=== PATIENT | male | born 2000 | race Caucasian/White ===

== ENCOUNTER 2019-11-29 08:50 | Emergency (ER) | payer BC, OTHER ==
[2019-11-29] MEDS ORDERED: HYDROCODONE/APAP 10/325 TAB ONE (09:10)
--- NOTE | 2019-11-29 09:49 | EDPHYS ---
Physician Documentation [facility] Name: Chang Mendez Age: 19 yrs Sex: Male : 2000 Arrival Date: 11/29/2019 Time: 08:54 Bed 5 Private MD: Dominik Rosa ED Physician Zain Persaud HPI: 11/28 09:04 This 19 yrs old Male presents to ER via Ambulatory with complaints of Hand snw Injury. 09:04 The patient or guardian reports decreased range of motion, pain, swelling. snw Historical: - Allergies: 09:00 PENICILLINS; aa5 - PMHx: 09:00 None; aa5 - PSHx: 09:09 right hand sx; em - Immunization history:: Adult Immunizations up to date. ROS: 09:03 Constitutional: Negative for fever, chills, and weight loss, Eyes: Negative for injury, snw pain, redness, and discharge, ENT: Negative for injury, pain, and discharge, Neck: Negative for injury, pain, and swelling, Cardiovascular: Negative for chest pain, palpitations, and edema, Respiratory: Negative for shortness of breath, cough, wheezing, and pleuritic chest pain, Abdomen/GI: Negative for abdominal pain, nausea, vomiting, diarrhea, and constipation, Back: Negative for injury and pain, : Negative for injury, bleeding, discharge, and swelling, Skin: Negative for injury, rash, and discoloration, Neuro: Negative for headache, weakness, numbness, tingling, and seizure, Psych: Negative for depression, anxiety, suicide ideation, homicidal ideation, and hallucinations. 09:03 MS/extremity: Positive for injury or acute deformity, decreased range of motion, pain, swelling, of the right hand. Exam: 09:02 Constitutional: This is a well developed, well nourished patient who is awake, alert, snw and in no acute distress. Head/Face: Normocephalic, atraumatic. Eyes: Pupils equal round and reactive to light, extra-ocular motions intact. Lids and lashes normal. Conjunctiva and sclera are non-icteric and not injected. Cornea within normal limits. Periorbital areas with no swelling, redness, or edema. Chest/axilla: Normal chest wall appearance and motion. Nontender with no deformity. No lesions are appreciated. Respiratory: Lungs have equal breath sounds bilaterally, clear to auscultation and percussion. No rales, rhonchi or wheezes noted. No increased work of breathing, no retractions or nasal flaring. Back: No spinal tenderness. No costovertebral tenderness. Full range of motion. Skin: Warm, dry with normal turgor. Normal color with no rashes, no lesions, and no evidence of cellulitis. Neuro: Awake and alert, GCS 15, oriented to person, place, time, and situation. Cranial nerves II-XII grossly intact. Motor strength 5/5 in all extremities. Sensory grossly intact. Cerebellar exam normal. Normal gait. Psych: Awake, alert, with orientation to person, place and time. Behavior, mood, and affect are within normal limits. 09:02 Musculoskeletal/extremity: Extremities: grossly normal except: noted in the dorsal aspect of middle phalanx of right index finger, dorsal aspect of proximal phalanx of right index finger, dorsal aspect of middle phalanx of right middle finger and dorsal aspect of proximal phalanx of right middle finger: decreased ROM, swelling, tenderness, ROM: limited active range of motion, limited passive range of motion due to pain, Circulation is intact in all extremities. the right hand Sensation intact. Vital Signs: 08:56 BP 126 / 87; Pulse 65; Resp 18 S; Temp 98.9(TE); Pulse Ox 100% on R/A; aa5 MDM: 08:58 Patient medically screened. snw 09:49 Data reviewed: vital signs, nurses notes. Data interpreted: Pulse oximetry: on room air snw is 100 %. Interpretation: normal. Counseling: I had a detailed discussion with the patient and/or guardian regarding: the historical points, exam findings, and any diagnostic results supporting the discharge/admit diagnosis, radiology results, the need for outpatient follow up, to return to the emergency department if symptoms worsen or persist or if there are any questions or concerns that arise at home. Special discussion: Based on the history and exam findings, there is no indication for further emergent testing or inpatient evaluation. I discussed with the patient/guardian the need to see the hand specialist for further evaluation of the symptoms. I discussed with the patient/guardian the need to see the orthopedic surgeon for further evaluation of the symptoms. 11/28 09:00 Order name: Hand Right 3 View XRAY; Complete Time: 10:05 snw 11/28 09:36 Order name: Volar Wrist Splint; Complete Time: 09:38 snw Administered Medications: 09:08 Drug: Celina 10 mg-325 mg 1 tabs Route: PO; em 10:02 Follow up: Response: No adverse reaction; Marked relief of symptoms; Pain is decreased; em RASS: Alert and Calm (0) Disposition: 16:51 Co-signature as Attending Physician, Zain Persaud MD I agree with the assessment and kdr plan of care. Disposition: 11/29/19 09:48 Discharged to Home. Impression: Nondisplaced fracture of base of third metacarpal bone, right hand. - Condition is Stable. - Discharge Instructions: Cast or Splint Care, Adult, RICE for Routine Care of Injuries, Hand Pain. - Prescriptions for Mobic 7.5 mg Oral Tablet - take 1 tablet by ORAL route once daily take with food; 20 tablet. - Work release form, Medication Reconciliation Form, Thank You Letter, Antibiotic Education, Prescription Opioid Use form. - Follow up: Emergency Department; When: As needed; Reason: Worsening of condition. Follow up: Rodney Leonard MD; When: 2 - 3 days; Reason: Recheck today's complaints, Continuance of care. Signatures: Dispatcher [employer] EDMS Zain Persaud MD MD [facility] Dodie Guzman, FIELD IRRIGATION WORKER-C FIELD IRRIGATION WORKER-Csnw Sourav De La Torre RN RN Tamiko Benz RN RN aa5 Corrections: (The following items were deleted from the chart) 09:09 09:00 PSHx: None; aa5 em 10:05 09:48 11/29/2019 09:48 Discharged to Home. Impression: Nondisplaced fracture of base of em third metacarpal bone, right hand. Condition is Stable. Forms are Medication Reconciliation Form, Thank You Letter, Antibiotic Education, Prescription Opioid Use. Follow up: Emergency Department; When: As needed; Reason: Worsening of condition. Follow up: Dr. Rodney Leonard; When: 2 - 3 days; Reason: Recheck today's complaints, Continuance of care. snw
--- NOTE | 2019-11-29 09:49 | ER ---
Nurse's Notes [facility] Name: Chang Mendez Age: 19 yrs Sex: Male : 2000 Arrival Date: 11/29/2019 Time: 08:54 Bed 5 Private MD: Dominik Rosa Diagnosis: Nondisplaced fracture of base of third metacarpal bone, right hand Presentation: 11/28 08:56 Chief complaint: Patient states: "I got my hand wrapped up with a drill press on aa5 Monday at work". pt c/o right hand pain, swelling noted to right index finger, and right middle finger. 08:56 Onset of symptoms was November 2019. aa5 08:56 Acuity: STELLA 4 aa5 08:56 Coronavirus screen: Proceed with normal triage. Ebola Screen: Patient negative for aa5 fever greater than or equal to 101.5 degrees Fahrenheit, and additional compatible Ebola Virus Disease symptoms. Initial Sepsis Screen: Does the patient meet any 2 criteria? No. Patient's initial sepsis screen is negative. Does the patient have a suspected source of infection? No. Patient's initial sepsis screen is negative. Risk Assessment: Do you want to hurt yourself or someone else? Patient reports no desire to harm self or others. 08:56 Method Of Arrival: Ambulatory aa5 Historical: - Allergies: 09:00 PENICILLINS; aa5 - PMHx: 09:00 None; aa5 - PSHx: 09:09 right hand sx; em - Immunization history:: Adult Immunizations up to date. Screenin:09 Abuse screen: Denies threats or abuse. Nutritional screening: No deficits noted. em Tuberculosis screening: No symptoms or risk factors identified. Fall Risk None identified. Assessment: 09:05 General: Appears in no apparent distress. comfortable, Behavior is calm, cooperative, em appropriate for age, Denies fever. Pain: Complains of pain in dorsal aspect of distal phalanx of right index finger, dorsal aspect of middle phalanx of right index finger, dorsal aspect of proximal phalanx of right index finger, dorsal aspect of distal phalanx of right middle finger, dorsal aspect of middle phalanx of right middle finger, dorsal aspect of proximal phalanx of right middle finger, dorsal aspect of distal phalanx of right ring finger, dorsal aspect of middle phalanx of right ring finger and dorsal aspect of proximal phalanx of right ring finger Pain currently is 3 out of 10 on a pain scale. Pain began 1 day ago. Aggravated by repositioning. Neuro: Level of Consciousness is awake, alert, obeys commands, Oriented to person, place, time, situation, Appropriate for age. Cardiovascular: Capillary refill < 3 seconds Patient's skin is warm and dry. Respiratory: Airway is patent Respiratory effort is even, unlabored, Respiratory pattern is regular, symmetrical. Derm: Skin is intact, is healthy with good turgor, Skin is pink, warm \\T\\ dry. Musculoskeletal: Capillary refill < 3 seconds, Range of motion: limited in PIP of right index finger, MCP of right index finger, PIP of right middle finger, MCP of right middle finger, PIP of right ring finger and MCP of right ring finger Swelling present in right hand. Vital Signs: 08:56 BP 126 / 87; Pulse 65; Resp 18 S; Temp 98.9(TE); Pulse Ox 100% on R/A; aa5 ED Course: 08:54 Patient arrived in ED. mr 08:54 Dominik Rosa MD is Private Physician. mr 08:56 Arm band placed on Patient placed in an exam room, on a stretcher. aa5 08:57 Sourav De La Torre RN is Primary Nurse. em 08:58 Dodie Guzman FNP-C is PHCP. snw 08:58 Zain Perasud MD is Attending Physician. snw 09:02 Triage completed. aa5 09:09 Patient has correct armband on for positive identification. Bed in low position. Call em light in reach. Pulse ox on. NIBP on. 09:33 Hand Right 3 View XRAY In Process Unspecified. EDMS 09:43 Rodney Leonard MD is Referral Physician. snw 10:02 No provider procedures requiring assistance completed. Patient did not have IV access em during this emergency room visit. Administered Medications: 09:08 Drug: Media 10 mg-325 mg 1 tabs Route: PO; em 10:02 Follow up: Response: No adverse reaction; Marked relief of symptoms; Pain is decreased; em RASS: Alert and Calm (0) Outcome: 09:48 Discharge ordered by . snw 10:02 Discharged to home ambulatory. em 10:02 Condition: good 10:02 Discharge instructions given to patient, Instructed on discharge instructions, follow up and referral plans. medication usage, Demonstrated understanding of instructions, follow-up care, medications, splint care, Prescriptions given X 1. 10:05 Patient left the ED. em Signatures: Dispatcher [employer] EDDodie Del Cid, ESCROW CLOSER-C ESCROW CLOSER-Csnw Anabella Krishnan Sourav De La Torre, RN RN em Tamiko Benz RN RN aa5 Corrections: (The following items were deleted from the chart) 09:09 09:00 PSHx: None; aa5 em
--- NOTE | 2019-11-29 10:04 | RAD REPORT ---
EXAM DESCRIPTION: RAD - Hand Right 3 View - 11/29/2019 9:32 am CLINICAL HISTORY: PAIN, hand trauma, pain primarily second and third fingers COMPARISON: Hand Right 3 View dated 12/18/2015 FINDINGS: Nondisplaced fractures present at the base of the third middle phalanx. Lateral view shows possible fracture or periosteal elevation at the dorsal margin of the third proximal phalanx head. S oft tissue edema surrounds the bony injuries at the third PIP joint. Soft tissue swelling is present around the second digit. No fracture is identifiable. Remainder the hand is without acute bony injury. Fixation hardware is present from prior fifth metaca rpal fracture repair. There is no dislocation or periosteal reaction noted. No foreign body in the s oft tissues. IMPRESSION: Nondisplaced fractures involving the head of the third proximal phalanx and base of the third middle phalanx at the PIP joint. Soft tissue swelling second and third digits with no additional acute bone or joint finding.
[2019-11-29 10:11] VITALS: BP 126/87; TEMP 98.9; O2SAT 100
== END 2019-11-29 10:05 | disposition home or self-care (01) ==
LOC: ER 08:50
PROC: 2W3CX1Z Immobilization of Right Lower Arm using Splint (ICD-10-PCS; principal; 2019-11-29)
DX: S62.342A Nondisplaced fracture of base of third metacarpal bone, right hand, initial encounter for closed fracture (principal); X58.XXXA Exposure to other specified factors, initial encounter; Y93.89 Activity, other specified; Y92.89 Other specified places as the place of occurrence of the external cause; Y99.8 Other external cause status; Z88.0 Allergy status to penicillin
CPT/HCPCS: 99284

== ENCOUNTER 2024-02-19 03:25 | Emergency (ER) | payer BC, OTHER ==
[2024-02-19] MEDS ORDERED: KETOROLAC 30 MG/ML INJ ONE (04:07)
[2024-02-19] MEDS ORDERED: ONDANSETRON 4 MG/2 ML VIAL ONE (04:07)
[2024-02-19] MEDS ORDERED: NA CHLORIDE 0.9% 1,000 ML ONE (04:08)
[2024-02-19] MEDS ORDERED: MORPHINE 4 MG/ML SYR ONE (04:08)
[2024-02-19 04:39] LABS: Absolute Basophils 0.1 K/uL (0-0.5); Absolute Eosinophils 0.1 K/uL (0-0.5); Absolute Lymphocytes (CBC) 1.6 K/uL (0.7-4.9); Absolute Monocytes 1.2 K/uL (0.1-1.3); Absolute Neutrophil 10.8 K/uL (1.8-8.0); Basophils % 0.4 % (0-1.3); Eosinophils % 0.7 % (0-4.4); Hematocrit 41.6 % (39.6-49.0); Hemoglobin 14.7 g/dL (13.6-17.9); Lymphocytes % 11.9 % (15.3-44.8); MCH 32.1 pg (27.0-35.0); MCHC 35.4 g/dL (32.0-36.0); MCV 90.8 fL (80-100); MPV 8.8 fL (7.6-11.3); Monocytes % 8.6 % (3.3-12.3); Neutrophils % 78.4 % (41.7-73.7); Platelets 259 thou/uL (152-406); RBC Red Blood Cell Count 4.58 M/uL (4.33-5.43)
[2024-02-19 04:49] LABS: ALT/SGPT 33 U/L (16-61); Albumin 3.6 g/dL (3.4-5.0); Alkaline Phosphatase 58 U/L (45-117); Anion Gap 6.8 mEq/L (5.0-15.0); BUN Blood Urea Nitrogen 12 mg/dL (7-18); Bicarbonate 27 mEq/L (21-32); Bilirubin Total 0.7 mg/dL (0.2-1.0); Globulin 3.5 g/dL (2.3-3.5); Glomerular Filtration Rate 86 ml/min (=/>90); Glucose Level 106 mg/dL (74-106); Lipase 15 U/L (13-75); Potassium 3.8 mEq/L (3.5-5.1); Protein, Total 7.1 g/dL (6.4-8.2); Sodium Level 137 mEq/L (136-145)
[2024-02-19 04:58] LABS: AST/SGOT < 10 U/L (15-37)
[2024-02-19 06:14] LABS: Specific Gravity 1.007 (1.005-1.030); Urine Bilirubin NEGATIVE (Negative); Urine Blood Negative (Negative); Urine Clarity Clear (Clear); Urine Color Colorless (Yellow); Urine Glucose NEGATIVE (Negative); Urine Ketones NEGATIVE (Negative); Urine Microscopic Reflex YN NO UMIC; Urine Nitrite NEGATIVE (Negative); Urine Protein NEGATIVE (Negative); Urine Urobilinogen Normal (Normal)
[2024-02-19] MEDS ORDERED: LIDOCAINE 2% INJ, 20 mL 20 ML ONE ×2 (06:21→06:26)
[2024-02-19] MEDS ORDERED: CEPHALEXIN 250 MG CAP ONE (06:29)
[2024-02-19] MEDS ORDERED: SMZ./TMP. 800/160 MG TABLET ONE (06:29)
--- NOTE | 2024-02-19 07:00 | EDPHYS ---
Physician Documentation [facility] Name: Chang Mendez Age: 23 yrs Sex: Male : 2000 Arrival Date: 02/19/2024 Time: 03:25 Bed 6 Private MD: ED Physician Claudio Black HPI: 02/18 03:34 This 23 yrs old Male presents to ER via Unassigned with complaints of sp4 Abdominal Pain, Blood coming from belly button, Fever. 07:01 23-year-old male presents with acute onset of bellybutton pain associated with the sp4 redness and reported fever.. Historical: - Allergies: 04:00 No Known Allergies; bm8 - Home Meds: 04:00 None [Active]; bm8 - PMHx: 04:00 Asthma; bm8 - PSHx: 04:00 None; bm8 - Immunization history:: Adult Immunizations up to date. - Infectious Disease History:: Denies. - Social history:: Smoking status: Patient denies any tobacco usage or history of. Patient uses alcohol, Patient/guardian denies using street drugs. - Family history:: not pertinent. ROS: 07:01 Constitutional: Negative for fever, chills, and weight loss, positive umbilical pain sp4 and the redness and swelling 07:01 All other systems are negative, Exam: 07:01 Constitutional: This is a well developed, well nourished patient who is awake, alert, sp4 and in no acute distress. Head/Face: Normocephalic, atraumatic. Eyes: Pupils equal round and reactive to light, extra-ocular motions intact. Lids and lashes normal. Conjunctiva and sclera are not injected. Cornea within normal limits. Periorbital areas with no swelling, redness, or edema. ENT: Nares patent. No nasal discharge, no septal abnormalities noted. Tympanic membranes are normal and external auditory canals are clear. Oropharynx with no redness, swelling, or masses, exudates, or evidence of obstruction, uvula midline. Mucous membranes moist. Neck: Trachea midline, no thyromegaly or masses palpated, and no cervical lymphadenopathy. Supple, full range of motion without nuchal rigidity, or vertebral point tenderness. Chest/axilla: Normal chest wall appearance and motion. Nontender with no deformity. No lesions are appreciated. Cardiovascular: Regular rate and rhythm with a normal S1 and S2. No gallops, murmurs, or rubs. Normal PMI, no JVD. No pulse deficits. Respiratory: Lungs have equal breath sounds bilaterally, clear to auscultation and percussion. No rales, rhonchi or wheezes noted. No increased work of breathing, no retractions or nasal flaring. Abdomen/GI: Soft, with normal bowel sounds. No distension or tympany. No guarding or rebound. No evidence of tenderness throughout. Positive umbilical pain tenderness redness and discomfort. Positive purulent drainage from umbilicus Back: No spinal tenderness. No costovertebral tenderness. Skin: Warm, dry with normal turgor. Normal color with no rashes, no lesions, and no evidence of cellulitis. MS/ Extremity: Pulses equal, no cyanosis. Neurovascular intact. Full, normal range of motion. Neuro: Awake and alert, GCS 15, oriented to person, place, time, and situation. Cranial nerves II-XII grossly intact. Motor strength 5/5 in all extremities. Sensory grossly intact. Psych: Awake, alert, with orientation to person, place and time. Behavior, mood, and affect are within normal limits Vital Signs: 03:59 BP 129 / 81; Pulse 91; Resp 20; Temp 100.3; Pulse Ox 99% ; Weight 104.33 kg; Height 5 bm8 ft. 9 in. ; Pain 8/10; 04:28 BP 125 / 80; Pulse 87; Pulse Ox 97% on R/A; tm6 04:43 BP 121 / 67; Pulse 78; Resp 17; Temp 98.7; Pulse Ox 97% on R/A; Pain 1/10; bm8 05:43 BP 145 / 85; Pulse 77; Pulse Ox 97% on R/A; tm6 06:59 BP 123 / 78; Pulse 74; Pulse Ox 99% on R/A; Pain 0/10; tm6 03:59 Body Mass Index 33.96 (104.33 kg, 175.26 cm) bm8 03:59 Pain Scale: Adult bm8 04:43 Pain Scale: Adult bm8 06:59 Pain Scale: Adult tm6 [place] Coma Score: 04:04 Eye Response: spontaneous(4). Motor Response: obeys commands(6). Verbal Response: bm8 oriented(5). Total: 15. 04:43 Eye Response: spontaneous(4). Motor Response: obeys commands(6). Verbal Response: bm8 oriented(5). Total: 15. 07:01 Eye Response: spontaneous(4). Motor Response: obeys commands(6). Verbal Response: sp4 oriented(5). Total: 15. Procedures: 06:58 I \T\ D: Incision and drainage was performed for an abscess of the umbilical area - sp4 umbilical abscess Prepped with Betadine, Anesthetized with 20 ml's 1% Lidocaine. Incised with #11 blade. Drained moderate amount purulent fluid. bloody fluid. Packed with iodoform gauze, Dressing: sterile 4x4 gauze, the patient tolerated the procedure well. MDM: 03:39 Patient medically screened. sp4 07:04 Differential diagnosis: viral Infection, bacterial infection, bronchitis, pneumonia. sp4 Data reviewed: vital signs, nurses notes, lab test result(s), radiologic studies. ED course: stable for discharge. . 02/18 04:58 Order name: Comprehensive Metabolic Panel; Complete Time: 06:24 EDMS 02/18 04:58 Order name: Lipase; Complete Time: 06:24 EDMS 02/18 04:58 Order name: CBC with Automated Diff; Complete Time: 06:24 EDMS 02/18 06:14 Order name: Urinalysis w/ reflexes; Complete Time: 06:24 EDMS 02/18 03:38 Order name: IV Saline Lock; Complete Time: 04:04 sp4 02/18 03:38 Order name: Labs collected and sent; Complete Time: 04:04 sp4 02/18 06:23 Order name: Dressing - Wound; Complete Time: 06:32 sp4 02/18 06:23 Order name: Gloves, Sterile; Complete Time: 06:32 sp4 02/18 06:23 Order name: Setup Suture Tray; Complete Time: 06:32 sp4 Administered Medications: 04:28 Drug: NS 0.9% IV 1000 ml IV at 1 bolus Per protocol; 1000 mL bolus Route: IV; Rate: 1 tm6 bolus; Site: right antecubital; 04:47 Follow up: Response: No adverse reaction; IV Status: Completed infusion; IV Intake: bm8 1000ml 04:28 Drug: Ondansetron IVP 4 mg IVP once; over 2 minutes Route: IVP; Site: right antecubital;tm6 04:47 Follow up: Response: No adverse reaction bm8 04:29 Drug: TORadol - Ketorolac IVP 15 mg IVP once Route: IVP; Site: right antecubital; tm6 04:47 Follow up: Response: No adverse reaction bm8 04:29 Drug: morphine IVP or IV 4 mg IVP once over 4 mins Route: IVP; Infused Over: 4 mins; tm6 Site: right antecubital; 04:47 Follow up: Response: No adverse reaction bm8 06:32 Drug: Lidocaine Infiltration (1 %) 40 ml 20 ml Infiltration once; to bedside {Note: tm6 administered by MD.} Volume: 20 ml; Route: Infiltration; 07:09 Follow up: Response: No adverse reaction bm8 06:57 Drug: Cephalexin PO 500 mg PO once Route: PO; tm6 07:09 Follow up: Response: No adverse reaction bm8 06:58 Drug: Trimethoprim-Sulfamethoxazole PO (160 mg-800 mg (DS) 1 tablet PO once Route: PO; tm6 07:08 Follow up: Response: No adverse reaction bm8 Disposition Summary: 02/19/24 07:00 Discharge Ordered Notes: Location: Home sp4 Problem: new sp4 Symptoms: have improved sp4 Condition: Stable sp4 Diagnosis - Cutaneous abscess of abdominal wall sp4 - Acute umbilical abscess sp4 Followup: sp4 - With: Rudy Benitez MD - When: 7 - 10 days - Reason: Recheck today's complaints Discharge Instructions: - Discharge Summary Sheet sp4 - Skin Abscess sp4 Forms: - Patient Portal Instructions sp4 - Work release form bm8 Prescriptions: - Ibuprofen 800 mg Oral Tablet - take 1 tablet ORAL route every 8 hours As needed take with food; 30 tablet; sp4 Refills: 0, Product Selection Permitted - Bactrim DS 800-160 mg Oral Tablet - take 1 tablet ORAL route every 12 hours for 10 days; 20 tablet; Refills: 0, sp4 Product Selection Permitted Signatures: Dispatcher [employer] Claudio Llamas MD MD sp4 Vishnu Robles RN RN tm6 Chong Reyes RN RN bm8 Corrections: (The following items were deleted from the chart) 04:02 04:00 Allergies: PENICILLINS [Inactive]; bm8 bm8 04:02 04:00 PMHx: None; bm8 bm8
--- NOTE | 2024-02-19 07:00 | ER ---
Nurse's Notes [facility] [place], [place] [facility] Name: Chang Mendez Age: 23 yrs Sex: Male : 2000 Arrival Date: 02/19/2024 Time: 03:25 Bed 6 Private MD: Diagnosis: Cutaneous abscess of abdominal wall;Acute umbilical abscess Presentation: 02/18 03:56 Chief complaint: Patient states: umbilical pain, swelling and redness that began ss Monday. Coronavirus screen: Client denies travel out of the [place] in the last 14 days. Ebola Screen: Patient denies exposure to infectious person. Patient denies travel to an Ebola-affected area in the 21 days before illness onset. 03:56 Method Of Arrival: Ambulatory ss 03:56 Acuity: STELLA 3 ss 03:59 Initial Sepsis Screen: Does the patient meet any 2 criteria? No. Patient's initial bm8 sepsis screen is negative. Does the patient have a suspected source of infection? No. Patient's initial sepsis screen is negative. Risk Assessment: Do you want to hurt yourself or someone else? Patient reports no desire to harm self or others. Onset of symptoms was February 18, 2024 at 21:00. Triage Assessment: 04:00 General: Appears in no apparent distress. uncomfortable, Behavior is calm, cooperative, bm8 appropriate for age. Pain: Complains of pain in umbilical area and suprapubic area Pain does not radiate. Pain currently is 8 out of 10 on a pain scale. Quality of pain is described as aching, dull. EENT: No deficits noted. No signs and/or symptoms were reported regarding the EENT system. Neuro: No deficits noted. Level of Consciousness is awake, alert, obeys commands, Oriented to person, place, time, situation, Appropriate for age. Cardiovascular: Denies chest pain, lightheadedness, shortness of breath, Heart tones S1 S2 present Capillary refill < 3 seconds Patient's skin is warm and dry. Respiratory: Airway is patent Trachea midline Respiratory effort is even, unlabored, Respiratory pattern is regular, symmetrical. GI: Abdomen is flat, non-distended, Last BM was February 18, 2024. Bowel sounds diminished in left lower quadrant Reports lower abdominal pain, constipation, bleeding from belly button, described as oozing that began around 2100 last night. : No signs and/or symptoms were reported regarding the genitourinary system. Derm: No signs and/or symptoms reported regarding the dermatologic system. Musculoskeletal: No signs and/or symptoms reported regarding the musculoskeletal system. Historical: - Allergies: 04:00 No Known Allergies; bm8 - Home Meds: 04:00 None [Active]; bm8 - PMHx: 04:00 Asthma; bm8 - PSHx: 04:00 None; bm8 - Immunization history:: Adult Immunizations up to date. - Infectious Disease History:: Denies. - Social history:: Smoking status: Patient denies any tobacco usage or history of. Patient uses alcohol, Patient/guardian denies using street drugs. - Family history:: not pertinent. Screenin:04 [facility] ED Fall Risk Assessment (Adult) History of falling in the last 3 months, bm8 including since admission No falls in past 3 months (0 pts) Confusion or Disorientation No (0 pts) Intoxicated or Sedated No (0 pts) Impaired Gait No (0 pts) Mobility Assist Device Used No (0 pt) Altered Elimination No (0 pt) Score/Fall Risk Level 0 - 2 = Low Risk Oriented to surroundings, Maintained a safe environment, Educated pt \T\ family on fall prevention, incl call for assistance when getting out of bed, Assessed \T\ reinforced patient's understanding of fall precautions. Abuse screen: Denies threats or abuse. Nutritional screening: No deficits noted. Tuberculosis screening: No symptoms or risk factors identified. Assessment: 04:04 Reassessment: see triage note. bm8 04:43 Reassessment: Patient appears in no apparent distress at this time. Patient and/or bm8 family updated on plan of care and expected duration. Pain level reassessed. Patient is alert, oriented x 3, equal unlabored respirations, skin warm/dry/pink. Patient states symptoms have improved. GI: Abdomen is tender to palpation in umbilical area and suprapubic area Reports Pain is 1 out of 10 on a pain scale. 05:43 Reassessment: No changes from previously documented assessment. tm6 06:59 Reassessment: No changes from previously documented assessment. tm6 07:09 Reassessment: Patient appears in no apparent distress at this time. Patient and/or bm8 family updated on plan of care and expected duration. Pain level reassessed. Patient is alert, oriented x 3, equal unlabored respirations, skin warm/dry/pink. Patient states feeling better. Patient states symptoms have improved. Vital Signs: 03:59 BP 129 / 81; Pulse 91; Resp 20; Temp 100.3; Pulse Ox 99% ; Weight 104.33 kg; Height 5 bm8 ft. 9 in. ; Pain 8/10; 04:28 BP 125 / 80; Pulse 87; Pulse Ox 97% on R/A; tm6 04:43 BP 121 / 67; Pulse 78; Resp 17; Temp 98.7; Pulse Ox 97% on R/A; Pain 1/10; bm8 05:43 BP 145 / 85; Pulse 77; Pulse Ox 97% on R/A; tm6 06:59 BP 123 / 78; Pulse 74; Pulse Ox 99% on R/A; Pain 0/10; tm6 03:59 Body Mass Index 33.96 (104.33 kg, 175.26 cm) bm8 03:59 Pain Scale: Adult bm8 04:43 Pain Scale: Adult bm8 06:59 Pain Scale: Adult tm6 [place] Coma Score: 04:04 Eye Response: spontaneous(4). Motor Response: obeys commands(6). Verbal Response: bm8 oriented(5). Total: 15. 04:43 Eye Response: spontaneous(4). Motor Response: obeys commands(6). Verbal Response: bm8 oriented(5). Total: 15. 07:01 Eye Response: spontaneous(4). Motor Response: obeys commands(6). Verbal Response: sp4 oriented(5). Total: 15. ED Course: 03:29 Patient arrived in ED. jj6 03:34 Claudio Black MD is Attending Physician. sp4 03:53 Chong Reyes RN is Primary Nurse. bm8 03:56 Triage completed. ss 04:00 Arm band placed on right wrist. bm8 04:04 Inserted saline lock: 20 gauge in right antecubital area, using aseptic technique. tm6 04:04 Patient has correct armband on for positive identification. Placed in gown. Bed in low bm8 position. Call light in reach. Side rails up X 1. Client placed on continuous cardiac and pulse oximetry monitoring. NIBP monitoring applied. Pulse ox on. NIBP on. Notified ED physician of. Door closed. Noise minimized. Head of bed lowered. 06:34 Assist provider with I \T\ D: of an abscess on belly button Set up I\T\D tray. Performed by tm 6 Claudio Black MD Patient tolerated well. 06:59 Rudy Benitez MD is Referral Physician. sp4 07:05 IV discontinued, intact, bleeding controlled, No redness/swelling at site. Pressure bm8 dressing applied. 07:06 Provided Education on: post er care. bm8 Administered Medications: 04:28 Drug: NS 0.9% IV 1000 ml IV at 1 bolus Per protocol; 1000 mL bolus Route: IV; Rate: 1 tm6 bolus; Site: right antecubital; 04:47 Follow up: Response: No adverse reaction; IV Status: Completed infusion; IV Intake: bm8 1000ml 04:28 Drug: Ondansetron IVP 4 mg IVP once; over 2 minutes Route: IVP; Site: right antecubital;tm6 04:47 Follow up: Response: No adverse reaction bm8 04:29 Drug: TORadol - Ketorolac IVP 15 mg IVP once Route: IVP; Site: right antecubital; tm6 04:47 Follow up: Response: No adverse reaction bm8 04:29 Drug: morphine IVP or IV 4 mg IVP once over 4 mins Route: IVP; Infused Over: 4 mins; tm6 Site: right antecubital; 04:47 Follow up: Response: No adverse reaction bm8 06:32 Drug: Lidocaine Infiltration (1 %) 40 ml 20 ml Infiltration once; to bedside {Note: tm6 administered by .} Volume: 20 ml; Route: Infiltration; 07:09 Follow up: Response: No adverse reaction bm8 06:57 Drug: Cephalexin PO 500 mg PO once Route: PO; tm6 07:09 Follow up: Response: No adverse reaction bm8 06:58 Drug: Trimethoprim-Sulfamethoxazole PO (160 mg-800 mg (DS) 1 tablet PO once Route: PO; tm6 07:08 Follow up: Response: No adverse reaction bm8 Medication: 04:04 VIS not applicable for this client. bm8 Intake: 04:47 IV: 1000ml; Total: 1000ml. bm8 Outcome: 07:00 Discharge ordered by . sp4 07:05 Discharged to home ambulatory, bm8 07:05 Condition: stable 07:05 Discharge instructions given to patient, Instructed on discharge instructions, follow up and referral plans. Demonstrated understanding of instructions, follow-up care, medications, Prescriptions given X 2, 07:09 Patient left the ED. bm8 Signatures: Diana Vasquez, RN RN ss Dorothy [id number] Claudio Black MD MD sp4 Vishnu Robles RN RN 6 Chong Reyes RN RN bm8 Corrections: (The following items were deleted from the chart) 04:02 04:00 Allergies: PENICILLINS [Inactive]; bm8 bm8 04:02 04:00 PMHx: None; bm8 bm8
--- NOTE | 2024-02-19 09:47 | RAD REPORT ---
EXAM DESCRIPTION: CT - Abdomen Pelvis W Contrast - 02/19/2024 6:56 am CLINICAL HISTORY: The patient is 23 years old and is Male; ABD PAIN TECHNIQUE: Axial computed tomography images of the abdomen and pelvis with intravenous contrast. S agittal and coronal reformatted images were created and reviewed. This CT exam was performed using one or more of the following dose reduction techniques: automated exposure control, adjustment of t he mA and/or kV according to patient size, and/or use of iterative reconstruction technique. COMPARISON: No relevant prior studies available. FINDINGS: Lung bases: Unremarkable. No mass. No consolidation. ABDOMEN: Liver: Unremarkable. No mass. Gallbladder and bile ducts: Unremarkable. No calcified stones. No ductal dilation. Pancreas: Unremarkable. No mass. No ductal dilation. Spleen: Unremarkable. No splenomegaly. Adrenals: Unremarkable. No mass. Kidneys and ureters: Unremarkable. No solid mass. No hydronephrosis. Stomach and bowel: Unremarkable. No obstruction. No mucosal thickening. PELVIS: Appendix: No findings to suggest acute appendicitis. Bladder: There may be diffuse bladder wall thickening, but the bladder is relatively nondistended limiting evaluation. Reproductive: Unremarkable as visualized. ABDOMEN and PELVIS: Intraperitoneal space: Unremarkable. No free air. No significant fluid collection. Bones/joints: No acute fracture. No dislocation. Soft tissues: There is a 1.2 x 2.0 x 2.0 cm thick walled fluid collection with adjacent stranding involving the umbilicus suggestive of an umbilical abscess. Vasculature: Unremarkable. No abdominal aortic aneurysm. Lymph nodes: Unremarkable. No enlarged lymph nodes. IMPRESSION: There is a 1.2 x 2.0 x 2.0 cm thick walled fluid collection with adjacent stranding invo lving the umbilicus suggestive of an umbilical abscess. Electronically signed by: Asad Martinez MD 02/19/2024 06:00 AM CDT 8 Due to temporary technical issues with the PACS/Fluency reporting system, reports are being signed by the in house radiologist without review as a courtesy to ensure prompt reporting. The interpreting r adiologist is fully responsible for the content of the report.
== END 2024-02-19 07:09 | disposition home or self-care (01) ==
LOC: ER 03:25
PROC: 0H97XZZ Drainage of Abdomen Skin, External Approach (ICD-10-PCS; principal; 2024-02-19)
DX: L02.216 Cutaneous abscess of umbilicus (principal); L02.211 Cutaneous abscess of abdominal wall
CPT/HCPCS: 85025; 36415; 81003; 83690; 80053; 74177; 96375; 96374; 99284; 10060; Q9967; J2405; J7030